=== PATIENT | female | born 1965 | race Caucasian/White ===

== ENCOUNTER 2016-12-02 10:13 | Emergency (ER) | payer OTHER ==
[~2016-12-02] VITALS: Ht 165.1 cm; Wt 77.1 kg
[~2016-12-02 10:13] MED LIST: TRAZ-144 PO
--- NOTE | 2016-12-02 11:09 | NUR ---
PATIENT WAS SEEN BY . DC, RX AND FOLLOW UP INSTRUCTIONS GIVEN AND EXPLAINED TO PT WHO STATES SHE UNDERSTANDS ALL INSTRUCTIONS.
== END 2016-12-02 11:11 | disposition home or self-care (01) ==
LOC: ER 10:13
DX: R07.81 Pleurodynia (principal); J45.909 Unspecified asthma, uncomplicated; G43.909 Migraine, unspecified, not intractable, without status migrainosus; Z79.899 Other long term (current) drug therapy; Z88.1 Allergy status to other antibiotic agents
CPT/HCPCS: 71010; A4663

== ENCOUNTER 2017-06-18 17:54 | Emergency (ER) | payer OTHER ==
--- NOTE | 2017-06-18 18:00 | NUR ---
attempted to traige pt, pt not in ED waiting room.
--- NOTE | 2017-06-18 18:10 | NUR ---
attempted to triage pt. no in ED waiting room.
== END 2017-06-18 18:21 | disposition left against medical advice (07) ==
LOC: ER 17:54
DX: Z53.21 Procedure and treatment not carried out due to patient leaving prior to being seen by health care provider (principal)

== ENCOUNTER 2018-04-24 13:18 | Emergency (ER) | payer OTHER ==
[~2018-04-24] VITALS: Ht 165.1 cm; Wt 70.3 kg
[~2018-04-24 13:18] MED LIST changes: -TRAZ-144 PO; +TRAZ-182 PO
--- NOTE | 2018-04-24 14:41 | NUR ---
PATIENT WAS MSE BY DR FRIAS IN ROOM 05A.
[2018-04-24] MEDS ORDERED: predniSONE 50 MG TABLET ONE (14:58)
[2018-04-24] MEDS ORDERED: AMOXICILLIN-CLAVUL 875-125MG TABLET ONE (14:58)
[2018-04-24] MEDS ORDERED: predniSONE 50 MG TABLET PO ONE (15:00)
[2018-04-24] MEDS ORDERED: AMOXICILLIN-CLAVUL 875-125MG TABLET PO ONE (15:00)
--- NOTE | 2018-04-24 15:49 | NUR ---
DC, Rx and follow up instructions given and explained to patient who states she understands all instructions
== END 2018-04-24 15:52 | disposition home or self-care (01) ==
LOC: ER 13:18
DX: J01.00 Acute maxillary sinusitis, unspecified (principal); J45.909 Unspecified asthma, uncomplicated; Z88.2 Allergy status to sulfonamides; Z88.1 Allergy status to other antibiotic agents; Z79.891 Long term (current) use of opiate analgesic
CPT/HCPCS: 99283; J7512; A4663

== ENCOUNTER 2018-05-20 15:09 | Emergency (ER) | payer OTHER ==
[~2018-05-20] VITALS: Ht 165.1 cm; Wt 70.3 kg
--- NOTE | 2018-05-20 15:59 | NUR ---
Patient discharged to home in stable conditon. Written and verbal after care instructions given to patient. Patient verbalizes understanding of instructions.
== END 2018-05-20 16:03 | disposition home or self-care (01) ==
LOC: ER 15:12
DX: J30.9 Allergic rhinitis, unspecified (principal); J45.909 Unspecified asthma, uncomplicated; F17.200 Nicotine dependence, unspecified, uncomplicated; Z88.2 Allergy status to sulfonamides; Z88.1 Allergy status to other antibiotic agents
CPT/HCPCS: A4663

== ENCOUNTER 2020-03-29 01:57 | Emergency (ER) | payer OTHER ==
[~2020-03-29] VITALS: Ht 165.1 cm; Wt 74.8 kg
[2020-03-29] MEDS ORDERED: DEXAMETHASONE SOD PHOSPHATE 4 MG INJ IM ONE (02:30)
[2020-03-29] MEDS ORDERED: EPINEPHRINE 1 MG/1 ML AMP ONE (02:30)
[2020-03-29] MEDS ORDERED: DEXAMETHASONE SOD PHOSPHATE 4 MG INJ ONE (02:30)
[2020-03-29] MEDS ORDERED: EPINEPHRINE-PF 1:1000 1 MG/ML AMPUL SQ ONE (02:30)
[2020-03-29] MEDS ORDERED: DEXAMETHASONE SOD PHOSPHATE 10 MG INJ ONE (02:31)
[2020-03-29 02:42] VITALS: BP 128/73
--- NOTE | 2020-03-29 02:42 | NUR ---
Patient discharged to home in stable condition. Written and verbal after care instructions given. Patient verbalizes understanding of instructions. Stressed follow up or return to ER for worsening s/s. Patient ambulated with stable gait.
== END 2020-03-29 02:43 | disposition home or self-care (01) ==
LOC: ER 02:01
DX: T78.40XA Allergy, unspecified, initial encounter (principal); X58.XXXA Exposure to other specified factors, initial encounter; F17.210 Nicotine dependence, cigarettes, uncomplicated; Z88.2 Allergy status to sulfonamides; J45.909 Unspecified asthma, uncomplicated; R03.0 Elevated blood-pressure reading, without diagnosis of hypertension
CPT/HCPCS: 96372 ×2; 99284; 99406; J0171; J1100 ×2; A4663